=== PATIENT | female | born 1995 | race Caucasian/White ===

== ENCOUNTER → 2017-07-16 | Outpatient (CLI) | payer OTHER ==
[2017-07-16 18:09] LABS: BASO % 0.3 % (0.0-1.0); EOS # 0.3 10^3/uL (0.0-0.50); EOS % 3.1 % (0.0-3.0); IMMATURE GRANULOCYTE % 0.2 % (0-0); LYMPH # 2.3 10^3/uL (1.5-6.5); LYMPH % 25.1 % (24.0-44.0); MEAN CORPUSCULAR HEMOGLOBIN 30.8 pg (27.0-33.0); MEAN CORPUSCULAR HGB CONC 33.9 g/dl (32.0-36.5); MONO # 0.4 10^3/uL (0.0-0.8); MONO % 4.5 % (0.0-5.0); NEUTROPHILS % 66.8 % (36.0-66.0); PLATELET COUNT, AUTOMATED 248 10^3/uL (150-450); RED CELL DISTRIBUTION WIDTH 12.6 % (11.5-14.5)
[2017-07-16 18:18] LABS: ADD MORPHOLOGY? NO
[2017-07-18 09:48] LABS: HBsAg Prenatal NEGATIVE (NEGATIVE)
== END ==
LOC: M LRY 13:47
PROVIDERS: ATTEND Obstetrics & Gynecology
DX: Z34.81 Encounter for supervision of other normal pregnancy, first trimester (principal)

== ENCOUNTER → 2017-08-28 | Outpatient (CLI) | payer OTHER ==
--- NOTE | 2017-08-28 16:28 | REP ---
Obstetric ultrasound for anatomy: There is a single intrauterine gestation. position is variable. There is movement and cardiac activity. heart rate is 150 beats per minute. The placenta is fundal. There is no placenta previa or abruptio and the placenta is grade zero. The amniotic fluid volume subjectively is normal. The cervix measures 4.9 cm length. By the ultrasound today gestational age is 18 weeks 6 days with an CHON of 01/23/2018. By LMP gestational age is 19 weeks 3 days with an CHON of 01/19/2018. weight is 155 grams (0 pounds, 8 ounces). This is the 24th percentile for 19 weeks 3 days. The following anatomic structures are identified and are unremarkable: The cranial lateral ventricles, choroid plexus, cerebellum, cisterna magna, face, facial profile, lungs, four-chamber heart, cardiac right and left ventricular outflow tracts, diaphragm, stomach, cord insertion, three-vessel cord, kidneys, bladder and upper lower extremities. The upper lip is not optimally demonstrated. Otherwise, there are no anomalies. Signed by Vasile Matson MD 08/28/2017 04:20 P
== END ==
LOC: M RAD 12:50
PROVIDERS: ATTEND Obstetrics & Gynecology
DX: Z36.89 Encounter for other specified antenatal screening (principal); Z3A.18 18 weeks gestation of pregnancy

== ENCOUNTER → 2017-09-22 | Outpatient (CLI) | payer OTHER ==
--- NOTE | 2017-09-23 05:46 | REP ---
Clinical: Anatomical evaluation. Comparison: 08/28/2017 . Findings: Examination demonstrates a single live intrauterine in breech presentation. motion is identified by technologist. Placenta is noted anteriorly and grade zero without evidence for placenta previa or abruption. Amniotic fluid volume is normal. Cervix measures 3.6 cm in length and appears closed. No evidence for nuchal cord. Gestational age by LMP 23 weeks 0 days with CHON 01/19/2018 . Gestational age by current measurements 21 weeks 6 days with CHON 01/27/2018 . FHR equals 157 beats per minute. Estimated weight 451 grams ( 11th percentile). Anatomical assessment demonstrates normal structures including cranium, choroid plexus, cavum, cerebellum/posterior fossa, facial features, lungs, diaphragm, stomach, cord insertion/three-vessel cord, kidneys/bladder, spine, and extremities. Impression: Single live intrauterine in breech presentation. In conjunction with prior examination anatomical assessment is complete and normal. Signed by Chito Sheldon MD 09/23/2017 05:38 A
== END ==
LOC: M RAD 14:16
PROVIDERS: ATTEND Obstetrics & Gynecology
DX: Z36.2 Encounter for other antenatal screening follow-up (principal)

== ENCOUNTER → 2017-11-11 | Outpatient (CLI) | payer OTHER ==
[2017-11-11 12:05] LABS: HEMATOCRIT 35.2 % (36.0-47.0); HEMOGLOBIN 11.7 g/dl (12.0-16.0); MEAN CORPUSCULAR HGB CONC 33.2 g/dl (32.0-36.5); MEAN CORPUSCULAR VOLUME 93.4 fl (80.0-96.0); PLATELET COUNT, AUTOMATED 266 10^3/uL (150-450); RED BLOOD COUNT 3.77 10^6/uL (4.00-5.40)
[2017-11-11 12:21] LABS: GLUCOSE CHALLENGE TEST 1 HOUR 57 MG/DL (LESS THAN 140)
== END ==
LOC: M LRY 08:30
DX: Z34.82 Encounter for supervision of other normal pregnancy, second trimester (principal); Z3A.00 Weeks of gestation of pregnancy not specified
CPT/HCPCS: 82950

== ENCOUNTER → 2017-12-01 | Outpatient (CLI) | payer OTHER | LOC: M LRY 13:52 | DX: O26.843 Uterine size-date discrepancy, third trimester (principal); Z3A.32 32 weeks gestation of pregnancy | CPT/HCPCS: 76816 ==

== ENCOUNTER 2017-12-28 13:07 | Outpatient (CLI) | payer OTHER ==
[2017-12-28 20:30] LABS: BEDSIDE GLUCOSE 77 MG/DL (70-105)
== END 2017-12-28 14:52 | disposition home or self-care (01) ==
LOC: M LDO 13:07
DX: O36.8130 Decreased fetal movements, third trimester, not applicable or unspecified (principal); Z3A.36 36 weeks gestation of pregnancy
CPT/HCPCS: 59025

== ENCOUNTER 2017-12-30 18:04 | Outpatient (CLI) | payer OTHER | END 2017-12-30 19:00 | disposition home or self-care (01) | LOC: M LDO 18:04 | DX: O26.893 Other specified pregnancy related conditions, third trimester (principal); Z71.1 Person with feared health complaint in whom no diagnosis is made; Z3A.36 36 weeks gestation of pregnancy | CPT/HCPCS: 59025 ==

== ENCOUNTER → 2017-12-30 | Outpatient (REF) | payer OTHER | LOC: M LAB REF 16:57 | DX: Z36.85 Encounter for antenatal screening for Streptococcus B (principal); Z3A.00 Weeks of gestation of pregnancy not specified | CPT/HCPCS: 87081 ==

== ENCOUNTER → 2018-01-02 | Outpatient (CLI) | payer OTHER | LOC: M LDO 01:30 | DX: O47.03 False labor before 37 completed weeks of gestation, third trimester (principal); Z3A.36 36 weeks gestation of pregnancy | CPT/HCPCS: 59025 ==

== ENCOUNTER 2018-01-15 09:08 | Inpatient (IN) | payer OTHER ==
[2018-01-15 11:03] LABS: HEMATOCRIT 35.1 % (36.0-47.0); HEMOGLOBIN 12.3 g/dl (12.0-16.0); MEAN CORPUSCULAR HEMOGLOBIN 31.3 pg (27.0-33.0); MEAN CORPUSCULAR VOLUME 89.3 fl (80.0-96.0); PLATELET COUNT, AUTOMATED 262 10^3/uL (150-450); RED BLOOD COUNT 3.93 10^6/uL (4.00-5.40); RED CELL DISTRIBUTION WIDTH 13.5 % (11.5-14.5); WHITE BLOOD COUNT 12.7 10^3/uL (4.0-10.0)
[2018-01-15] MEDS ORDERED: FENTANYL 2MCG/ML ROPIVACAINE 0.2% IN 0.9% NACL 200ML IVBAG As Ordered (11:48)
[2018-01-15] MEDS: LR 1,000 ML IV ×2 (12:33→18:09)
[2018-01-15] MEDS ORDERED: FENTANYL/ROPIVACAINE/NACL BAG 200 ML EPIDURAL (13:15)
[2018-01-15] MEDS ORDERED: REFRIGERATOR IV KEYS XX (13:15)
[2018-01-15] MEDS ORDERED: NALOXONE INJ 0.4 MG/1 ML VIAL (J2310) IV (13:15)
[2018-01-15] MEDS ORDERED: EPIDURAL/PCA KEYS XX (13:15)
[2018-01-15] MEDS ORDERED: ONDANSETRON 4MG/2ML VIAL (J2405) IV ×2 (13:15→15:15)
[2018-01-15] MEDS ORDERED: diphenhydrAMINE INJ 50MG/ML VIAL (J1200) IV (13:15)
[2018-01-15] MEDS ORDERED: ePHEDrine SULFATE 25 MG/5 ML(5MG/ML) SYRINGE IV (13:15)
[2018-01-15] MEDS ORDERED: LACTATED RINGER'S 1000 ML IV (13:15)
[2018-01-15] MEDS ORDERED: EPIDURAL COMMENT XX (13:15)
[2018-01-15] MEDS ORDERED: OXYTOCIN 30 UNITS IN 0.9% NaCl 500ML IV BAG (J2590) As Ordered (14:15)
[2018-01-15] MEDS ORDERED: DIBUCAINE 1% OINTMENT 30GM TOP (15:15)
[2018-01-15] MEDS ORDERED: PROMETHAZINE 25 MG TAB PO (15:15)
[2018-01-15] MEDS: OXYTOCIN DRIP 30 UNITS in APPROPRIATE DILUENT 1 EA IV (18:09)
[2018-01-15] MEDS: LACTATED RINGER'S 1000 ML IV (18:09)
[2018-01-15] MEDS: DOCUSATE SODIUM 100 MG CAP PO (21:57)
[2018-01-16] MEDS: IBUPROFEN 800 MG TAB PO (08:28)
[2018-01-16] MEDS: PRENATAL VITAMINS CHEWABLE TABLET PO (08:28)
[2018-01-16] MEDS: ACETAMINOPHEN 500 MG TAB PO (13:06)
[2018-01-17] MEDS: MEASLES,MUMPS,RUBELLA VACCINE INJ (MMR-II) (90707) SC (07:24)
[2018-01-17] MEDS: RHOGAM 300 MCG (1500 IU) INJ (J2790) IM (07:24)
[2018-01-17] MEDS: PRENATAL VITAMINS CHEWABLE TABLET PO (08:06)
== END 2018-01-17 10:30 | disposition home or self-care (01) | DRG 775 ==
LOC: M LDO 09:08 → M LDI 09:42 → M OBS 17:46
PROVIDERS: Obstetrics & Gynecology
PROC: 10E0XZZ Delivery of Products of Conception, External Approach (ICD-10-PCS; principal; 2018-01-15)
DX: O80 Encounter for full-term uncomplicated delivery (principal); Z37.0 Single live birth; Z3A.38 38 weeks gestation of pregnancy

== ENCOUNTER → 2018-09-30 | Outpatient (REF) | payer OTHER ==
[2018-09-30 22:08] LABS: CHLAMYDIA DNA AMPLIFICATION NEGATIVE (NEGATIVE); GC DNA AMPLIFICATION NEGATIVE (NEGATIVE)
== END ==
LOC: M LAB REF 17:10
DX: Z11.3 Encounter for screening for infections with a predominantly sexual mode of transmission (principal)
CPT/HCPCS: 87591

== ENCOUNTER → 2018-10-01 | Outpatient (CLI) | payer OTHER | LOC: M RAD 12:18 | DX: R10.2 Pelvic and perineal pain (principal) | CPT/HCPCS: 76856 ==

== ENCOUNTER → 2018-12-28 | Outpatient (REF) | payer OTHER ==
[~2018-12-28] MED LIST: IBUP-1114 PO; MAPA500T2 PO; PRENTAB9 PO
== END ==
LOC: M LAB REF 10:03
PROVIDERS: ATTEND Obstetrics & Gynecology
DX: Z12.4 Encounter for screening for malignant neoplasm of cervix (principal)